=== PATIENT | male | born 1980 | race Hispanic/Latino ===

== ENCOUNTER 2023-10-03 21:08 | Observation (INO) | payer SELFPAY ==
[2023-10-03] MEDS ORDERED: Dextrose 5% in Water 1,000 ML IV PRN (21:41)
[2023-10-03] MEDS ORDERED: Glucagon 1 MG/ML KIT IM PRN (21:41)
[2023-10-03] MEDS ORDERED: Senokot S 8.6-50 MG TAB PO PRN (21:41)
[2023-10-03] MEDS ORDERED: Acetaminophen 325 MG TAB PO PRN (21:41)
[2023-10-03] MEDS ORDERED: Guaifenesin DM 100-10/5 ML UDCUP PO PRN (21:41)
[2023-10-03] MEDS ORDERED: Dextrose 50% Abboject 50 ML SYRINGE SLOW IVP PRN (21:41)
[2023-10-03] MEDS ORDERED: Ondansetron PF 4 MG/2 ML Vial IVP PRN (21:41)
[2023-10-03] MEDS ORDERED: Calcium Carbonate 500 MG ChewTAB PO PRN (21:41)
[2023-10-03] MEDS ORDERED: Nitroglycerin 0.4 MG TAB (25 Tab Bottle) SL PRN (21:47)
[2023-10-03 21:55] VITALS: BMI 23.3
[2023-10-03] MEDS ORDERED: Magnesium Sulfate/D5W 1 GM in Premix 1 BAG IVPB SCH (22:00)
[2023-10-03] MEDS ORDERED: Lantus 1000 UNITS/10 ML VIAL SC SCH (22:00)
[2023-10-03] MEDS ORDERED: Magnesium Sulfate/D5W 1 GM/100 ML BAG IVPB SCH (22:00)
[2023-10-03 22:41] LABS: Troponin I Less than 0.010 ng/mL (< 0.028)
[2023-10-03] MEDS ORDERED: Multivitamins, Adult 10 ML, Folic Acid 1 MG, Thiamine HCl 100 MG in Dextrose 5 %-0.45 %... IV SCH (23:59)
[2023-10-04 05:24] LABS: ALT (SGPT) 120 U/L (8-55); AST (SGOT) 80 U/L (5-34); Albumin 3.8 g/dL (3.5-5.0); Alkaline Phosphatase 93 U/L (40-110); Anion Gap 13 mmol/L (10-20); BUN (Urea Nitrogen) 14 mg/dL (8.9-20.6); Bilirubin, Total 0.6 mg/dL (0.2-1.2); Calc. Creatinine Clearance 106 mL/min (70-130); Calcium 8.8 mg/dL (7.8-10.44); Carbon Dioxide 23 mmol/L (22-29); Cardiac Risk 5.4 (Less than 4.5); Chloride 100 mmol/L (98-107); Cholesterol 259 mg/dl (< 200 Desired); Estimated GFR 112; Globulin 3.2 g/dL (2.4-3.5); Glucose 349 mg/dL (70-105); HDL Cholesterol 48 mg/dL (>60 Neg Risk); LDL Cholesterol, Calculated 134 mg/dL; Potassium 3.8 mmol/L (3.5-5.1); Sodium 132 mmol/L (136-145); Triglycerides 387 mg/dL (Less than 150)
[2023-10-04 05:26] LABS: #Eosinphils 0.1 10x3/uL (0.0-0.5); #Monocytes 0.6 10x3/uL (0.0-1.1); #Neutrophils 3.6 10x3/uL (1.5-8.4); %Basophils 0.5 % (0.0-2.0); %Lymphocytes 29.8 % (18.0-47.0); %Monocytes 9.3 % (0.0-10.0); %Neutrophils 59.2 % (40.0-75.0); Hematocrit 37.9 % (38.8-50.0); Hemoglobin 13.1 g/dL (13.5-17.5); Mean Corpuscular HGB CONC 34.6 g/dL (32.0-36.0); Mean Corpuscular Hemoglobin 30.5 pg (27.0-33.0); Mean Corpuscular Volume 88.3 fl (81.2-95.1); Mean Platelet Volume 9.9 fl (7.4-10.4); Platelet Count 156 10x3/uL (150-450); RBC Distribution Width 12.4 % (11.5-14.5); Red Blood Cell (RBC) Count 4.29 10x6/uL (4.32-5.72)
[2023-10-04] MEDS: HumaLOG 300 UNITS/3 ML VIAL SC PRN ×2 (07:16→17:13)
[2023-10-04] MEDS: glipiZIDE 5 MG TAB PO SCH ×2 (08:28→17:12)
[2023-10-04] MEDS ORDERED: Aspirin 81 mg Enteric Coated Tablet PO SCH (09:00)
[2023-10-04] MEDS ORDERED: Lisinopril 20 MG TAB PO SCH (09:00)
[2023-10-04 09:59] LABS: Troponin I Less than 0.010 ng/mL (< 0.028)
[2023-10-04] MEDS ORDERED: Lorazepam 1 MG TAB PO PRN (10:00)
[2023-10-04] MEDS ORDERED: Thiamine HCl 200 MG/2 ML VIAL SLOW IVP SCH (10:00)
[2023-10-04] MEDS ORDERED: Ondansetron ODT 4 MG TAB PO PRN (10:00)
[2023-10-04] MEDS ORDERED: Lorazepam 2 MG/ML VIAL IM PRN (10:00)
[2023-10-04 16:47] VITALS: BP 169/90; TEMP 98.6
[2023-10-04] MEDS ORDERED: Atorvastatin Calcium 20 MG TAB PO SCH (21:00)
[2023-10-04] MEDS ORDERED: Atorvastatin Calcium 40 MG TAB PO SCH (21:00)
[2023-10-05] MEDS ORDERED: Folic Acid 1 MG TAB PO SCH (09:00)
[2023-10-05] MEDS ORDERED: Multivit, Therapeutic 1 TAB PO SCH (09:00)
[2023-10-05] MEDS ORDERED: Lorazepam 1 MG TAB PO PRN (10:00)
[2023-10-06] MEDS ORDERED: Lorazepam 1 MG TAB PO PRN (10:00)
[2023-10-07] MEDS ORDERED: Thiamine 100 MG TAB PO SCH (09:00)
[2023-10-07] MEDS ORDERED: Lorazepam 0.5 MG TAB PO PRN (10:00)
== END 2023-10-04 18:45 | disposition home or self-care (01) ==
LOC: CSHTELE 21:08 → INTOOBSV 21:08
PROVIDERS: ADMIT Student in an Organized Health Care Education/Training Program; ATTEND Student in an Organized Health Care Education/Training Program
DX: R29.90 Unspecified symptoms and signs involving the nervous system (principal); R74.01 Elevation of levels of liver transaminase levels; F10.10 Alcohol abuse, uncomplicated; E11.65 Type 2 diabetes mellitus with hyperglycemia; I10 Essential (primary) hypertension; E78.5 Hyperlipidemia, unspecified; Z79.4 Long term (current) use of insulin; Z79.84 Long term (current) use of oral hypoglycemic drugs; Z79.82 Long term (current) use of aspirin; Z79.899 Other long term (current) drug therapy
CPT/HCPCS: 36415; 36416; 70551; 80053; 80061; 84484; 85025; 93306; 93880; 96372; 96374; 96375; 96376; G0378; J1650; J1815; J3411; J3475; J7042